=== PATIENT | female | born 1945 | race Caucasian/White ===

== ENCOUNTER 2016-10-27 10:43 | Inpatient (IN) | payer MEDICARE, MEDICAID ==
[~2016-10-27] VITALS: Ht 160 cm; Wt 90.6 kg
[~2016-10-27 10:43] MED LIST: ASPI-496 PO; CELE200C PO; CETI10TA24 PO; CHOL100015 PO; CYCL5TAB PO; DIAZ5TAB PO; DULO30CA2 PO; EPIN0.3P3 IM; ESOM40CA PO; FAMO-79 PO; HYDR-3144 PO; HYDR-3307 PO; LEVO100T PO; LIDO700A5 TD; LOSA25TA5 PO; LOVA20TA2 PO; LUTE20CA PO; METF500T4 PO; ONDA4TAB7 PO; PREG75CA PO; SUMA100T4 PO
[2016-10-27] MEDS ORDERED: SODIUM CHLORIDE FLUSH 10ML SYR IVF ONE (12:00)
[2016-10-27] MEDS ORDERED: SODIUM CHLORIDE 0.9% 1,000ML IVBOLUS ONE (12:00)
[2016-10-27 12:45] LABS: ASPARTATE AMINO TRANSFERASE 96 U/L (15-37); BLOOD UREA NITROGEN 68 mg/dL (7-18)
[2016-10-27 13:09] LABS: HEMOGLOBIN 14.2 g/dL (11.7-16.4)
[2016-10-27 14:33] LABS: PTH INTACT INTERPRETATION ** Comment **
[2016-10-27 14:59] LABS: PARATHYROID HORMONE INTACT 25.1 pg/mL (14-72)
[2016-10-27] MEDS ORDERED: ACETAMINOPHEN 325 MG TABLET PO PRN (15:00)
[2016-10-27] MEDS ORDERED: ONDANSETRON ODT 4 MG PO PRN (15:00)
[2016-10-27] MEDS ORDERED: BISACODYL 10 MG SUPP PR PRN (15:00)
[2016-10-27] MEDS ORDERED: POLYETHYLENE GLYCOL 17 GM PACKET PO PRN (15:00)
[2016-10-27] MEDS ORDERED: ONDANSETRON 2MG/ML, 2ML IVP PRN (15:00)
[2016-10-27] MEDS: SODIUM CHLORIDE 0.9% 1,000 ML IV SCH ×4 (15:00→23:40)
[2016-10-27] MEDS: LIDODERM 5% PATCH TD SCH (15:30)
[2016-10-27] MEDS ORDERED: DIAZEPAM 5 MG TABLET PO PRN (15:30)
[2016-10-27] MEDS: INSULIN REGULAR 100 UNITS/ML, 3ML VIAL SQ-INSULIN SCH ×2 (16:00→21:00)
[2016-10-27 16:16] VITALS: BP 106/66
[2016-10-27 16:17] VITALS: BP 106/66
[2016-10-27] MEDS: HEPARIN 5,000 UNITS/ML, 1ML SQ SCH (16:21)
[2016-10-27 17:48] LABS: IS PT STATUS REG ER OR PRE ER? NO
[2016-10-27 18:18] LABS: BLOOD UREA NITROGEN 66 mg/dL (7-18)
[2016-10-27 19:50] VITALS: BP 116/72
[2016-10-27 20:57] LABS: POTASSIUM,URINE RANDOM 10 mmol/L
[2016-10-27] MEDS ORDERED: TEMPLATE NON-FORMULARY MED. (Lovastatin** 20 MG) PO SCH (21:00)
[2016-10-27] MEDS ORDERED: SIMVASTATIN 10 MG TABLET PO SCH (21:00)
[2016-10-27] MEDS ORDERED: TEMPLATE NON-FORMULARY MED. (Esomeprazole Magnesium** (Nexium**) 40 MG) PO SCH (21:00)
[2016-10-27] MEDS: ASPIRIN 81 MG TABLET EC PO SCH (21:04)
[2016-10-27] MEDS ORDERED: PANTOPROZOLE 40MG TABLET PO SCH (21:16)
[2016-10-28] MEDS: SODIUM CHLORIDE 0.9% 1,000 ML IV SCH ×5 (01:00→21:00)
[2016-10-28] MEDS: HEPARIN 5,000 UNITS/ML, 1ML SQ SCH ×2 (03:00→16:33)
[2016-10-28 04:00] VITALS: BP 97/67
[2016-10-28] MEDS: LEVOTHYROXINE 100 MCG TABLET PO SCH (05:57)
[2016-10-28 06:26] LABS: HEMOGLOBIN 13.1 g/dL (11.7-16.4)
[2016-10-28 06:32] VITALS: BP 107/69
[2016-10-28 06:47] LABS: ASPARTATE AMINO TRANSFERASE 66 U/L (15-37); BLOOD UREA NITROGEN 63 mg/dL (7-18)
[2016-10-28 07:50] LABS: IS PT STATUS REG ER OR PRE ER? NO
[2016-10-28] MEDS: INSULIN REGULAR 100 UNITS/ML, 3ML VIAL SQ-INSULIN SCH ×4 (09:00→21:00)
[2016-10-28] MEDS: PANTOPROZOLE 40MG TABLET PO SCH ×2 (09:46→16:33)
[2016-10-28] MEDS: SENNA/DOCUSATE TABLET PO SCH ×2 (09:46→21:01)
[2016-10-28] MEDS: IRON SUCROSE COMPLEX 100MG/5ML IV SCH (11:52)
[2016-10-28 12:35] VITALS: BP 105/71
[2016-10-28] MEDS: LIDODERM 5% PATCH TD SCH (15:30)
[2016-10-28 18:40] VITALS: BP 118/71
[2016-10-28] MEDS: SIMVASTATIN 10 MG TABLET PO SCH (21:01)
[2016-10-28] MEDS: ASPIRIN 81 MG TABLET EC PO SCH (21:01)
[2016-10-29] MEDS: SODIUM CHLORIDE 0.9% 1,000 ML IV SCH ×2 (02:26→09:14)
[2016-10-29 04:05] VITALS: BP 102/63
[2016-10-29] MEDS: HEPARIN 5,000 UNITS/ML, 1ML SQ SCH ×2 (06:16→17:37)
[2016-10-29] MEDS: LEVOTHYROXINE 100 MCG TABLET PO SCH (06:17)
[2016-10-29 06:19] LABS: HEMOGLOBIN 12.2 g/dL (11.7-16.4)
[2016-10-29 06:21] LABS: ASPARTATE AMINO TRANSFERASE 48 U/L (15-37); BLOOD UREA NITROGEN 45 mg/dL (7-18)
[2016-10-29] MEDS: INSULIN REGULAR 100 UNITS/ML, 3ML VIAL SQ-INSULIN SCH ×4 (07:00→20:54)
[2016-10-29 07:50] VITALS: BP 110/71
[2016-10-29] MEDS: PANTOPROZOLE 40MG TABLET PO SCH ×2 (09:09→16:29)
[2016-10-29] MEDS: IRON SUCROSE COMPLEX 100MG/5ML IV SCH (11:46)
[2016-10-29] MEDS: SENNA/DOCUSATE TABLET PO SCH (11:46)
[2016-10-29] MEDS ORDERED: MAGNESIUM SULFATE PMX 2GM/50ML 50 ML IV ONE (13:30)
[2016-10-29] MEDS ORDERED: POTASSIUM CHLORIDE 20 MEQ TAB.ER.PRT PO ONE (13:30)
[2016-10-29] MEDS: LIDODERM 5% PATCH TD SCH (14:21)
[2016-10-29] MEDS ORDERED: SODIUM CHLORIDE 0.9% 1,000 ML IV SCH (14:30)
[2016-10-29 15:43] VITALS: BP 116/66
[2016-10-29 19:42] VITALS: BP 109/60
[2016-10-29] MEDS: ASPIRIN 81 MG TABLET EC PO SCH (20:54)
[2016-10-29] MEDS: SIMVASTATIN 10 MG TABLET PO SCH (20:54)
[2016-10-30 03:16] VITALS: BP 102/67
[2016-10-30] MEDS: HEPARIN 5,000 UNITS/ML, 1ML SQ SCH (05:15)
[2016-10-30] MEDS: LEVOTHYROXINE 100 MCG TABLET PO SCH (05:15)
[2016-10-30 05:50] LABS: ASPARTATE AMINO TRANSFERASE 41 U/L (15-37); BLOOD UREA NITROGEN 30 mg/dL (7-18)
[2016-10-30 05:51] LABS: HEMOGLOBIN 11.6 g/dL (11.7-16.4)
[2016-10-30] MEDS: INSULIN REGULAR 100 UNITS/ML, 3ML VIAL SQ-INSULIN SCH ×2 (07:00→11:33)
[2016-10-30 07:11] VITALS: BP 109/55
[2016-10-30] MEDS: PANTOPROZOLE 40MG TABLET PO SCH (08:46)
[2016-10-30] MEDS: IRON SUCROSE COMPLEX 100MG/5ML IV SCH (10:30)
[2016-10-30 12:38] VITALS: BP 118/70
[2016-10-30] MEDS: LIDODERM 5% PATCH TD SCH (14:58)
== END 2016-10-30 15:58 | disposition home or self-care (01) | DRG 683 ==
LOC: ED 12:30 → EDIP 13:46 → 4WST 15:57
PROVIDERS: ADMIT Family Medicine; ATTEND Family Medicine
PROC: 0T9B70Z Drainage of Bladder with Drainage Device, Via Natural or Artificial Opening (ICD-10-PCS; principal; 2016-10-27)
DX: N17.0 Acute kidney failure with tubular necrosis (principal); E46 Unspecified protein-calorie malnutrition; J44.9 Chronic obstructive pulmonary disease, unspecified; G43.909 Migraine, unspecified, not intractable, without status migrainosus; E86.0 Dehydration; K21.9 Gastro-esophageal reflux disease without esophagitis; H81.09 Meniere's disease, unspecified ear; K22.0 Achalasia of cardia; K59.00 Constipation, unspecified; R74.8 Abnormal levels of other serum enzymes; E11.21 Type 2 diabetes mellitus with diabetic nephropathy; R80.9 Proteinuria, unspecified; D64.9 Anemia, unspecified; E83.51 Hypocalcemia; M19.90 Unspecified osteoarthritis, unspecified site; G62.9 Polyneuropathy, unspecified; E03.9 Hypothyroidism, unspecified; Z96.652 Presence of left artificial knee joint; Z88.1 Allergy status to other antibiotic agents; Z91.030 Bee allergy status; Z91.041 Radiographic dye allergy status; Z90.49 Acquired absence of other specified parts of digestive tract; Z88.5 Allergy status to narcotic agent; Z88.8 Allergy status to other drugs, medicaments and biological substances; Z91.048 Other nonmedicinal substance allergy status; Z82.49 Family history of ischemic heart disease and other diseases of the circulatory system; Z82.5 Family history of asthma and other chronic lower respiratory diseases; Z80.3 Family history of malignant neoplasm of breast; Z83.3 Family history of diabetes mellitus; Z98.1 Arthrodesis status; Z68.35 Body mass index [BMI] 35.0-35.9, adult
CPT/HCPCS: 36415; 71010; 74176; 80048; 80053; 81001; 82306; 82310; 82436; 82550; 82570; 82728; 82962; 83540; 83550; 83605; 83690; 83735; 83970; 84100; 84133; 84156; 84300; 84443; 84484; 84550; 85025; 85610; 85730; 86850; 86900; 87205; 93005; 96360; 96361; J1644; J1756; J1815; J3475; J7030

== ENCOUNTER 2017-08-09 07:10 | Day surgery (SDC) | payer MEDICARE, MEDICAID ==
[~2017-08-09 07:10] MED LIST changes: -HYDR-3144 PO; +HYDR-3245 PO; -LUTE20CA PO; +LUTE20CA2 PO
[2017-08-09 08:00] VITALS: BP 136/82
[2017-08-09 08:21] LABS: INTERNATIONAL NORMALIZED RATIO 1.17 (0.93-1.1)
[2017-08-09] MEDS ORDERED: LIDOCAINE 1%, 10ML ONE (09:09)
[2017-08-09] MEDS ORDERED: NALOXONE 1 MG/ML, 2ML ONE (09:12)
[2017-08-09] MEDS ORDERED: FLUMAZENIL 0.1 MG/1 ML, 5ML ONE (09:12)
[2017-08-09] MEDS ORDERED: FENTANYL PF 100 MCG/2ML ONE (09:12)
[2017-08-09] MEDS ORDERED: MIDAZOLAM 1 MG/ML, 5ML ONE (09:12)
[2017-08-09] MEDS ORDERED: VISIPAQUE 320 MG/ML, 150ML BOTTLE ONE (13:00)
== END 2017-08-09 11:55 ==
LOC: OUT 07:10
PROVIDERS: ATTEND Surgery
DX: C22.9 Malignant neoplasm of liver, not specified as primary or secondary (principal)
CPT/HCPCS: 36011; 36415; 75889; 76937; 85610; 99156; 99157; C1751; C1769; C1894; J2250; J3010; J3490; Q9967; 75885; J2310

== ENCOUNTER → 2017-08-17 | Outpatient (CLI) | payer MEDICARE, MEDICAID | END | disposition home or self-care (01) | LOC: CFH 09:41 | PROVIDERS: ATTEND Surgery | DX: C22.9 Malignant neoplasm of liver, not specified as primary or secondary (principal) | CPT/HCPCS: 71250 ==

== ENCOUNTER → 2017-08-17 | Outpatient (CLI) | payer MEDICARE, MEDICAID | END | disposition home or self-care (01) | LOC: PETCFH 09:34 | PROVIDERS: ATTEND Surgery | DX: C22.9 Malignant neoplasm of liver, not specified as primary or secondary (principal) | CPT/HCPCS: 78306; A9503 ==

== ENCOUNTER → 2017-09-21 | Outpatient (CLI) | payer MEDICARE, MEDICAID | LOC: RAD 09:41 | PROVIDERS: ATTEND Nurse Practitioner | DX: M25.572 Pain in left ankle and joints of left foot (principal); R60.0 Localized edema ==

== ENCOUNTER 2017-09-27 01:49 | Emergency (ER) | payer MEDICARE, MEDICAID ==
[~2017-09-27] VITALS: Ht 160 cm; Wt 83.0 kg
[2017-09-27 02:50] LABS: BASOPHILS # (AUTO) 0.01 x10^3/uL (0-0.1); BASOPHILS % (AUTO) 0 % (0-1); EOSINOPHILS # (AUTO) 0.09 x10^3/uL (0-0.4); EOSINOPHILS % (AUTO) 2 % (1-7); LYMPHOCYTES # (AUTO) 1.24 x10^3/uL (1-3.4); LYMPHOCYTES % (AUTO) 27 % (22-44); MD NO; MEAN CORPUSCULAR HEMOGLOBIN 31.5 pg (27.0-34.8); MEAN CORPUSCULAR HGB CONC 33.4 g/dL (32.4-35.8); MEAN CORPUSCULAR VOLUME 94.3 fL (80-100); MEAN PLATELET VOLUME 7.9 fL (7.4-10.4); MONOCYTES % (AUTO) 9 % (2-9); NEUTROPHILS # (AUTO) 2.85 x10^3/uL (1.8-6.8); NEUTROPHILS % (AUTO) 62 % (42-75); PLATELET COUNT 117 x10^3/uL (130-400); RED BLOOD COUNT 4.39 x10^6/uL (3.82-5.3); RED CELL DISTRIBUTION WIDTH 13.8 % (9.6-15.2)
[2017-09-27 03:01] LABS: ALANINE AMINOTRANSFERASE 28 U/L (12-78); ALBUMIN 2.7 g/dL (3.4-5.0); ANION GAP 10 mmol/L (5-15); CALCIUM 8.1 mg/dL (8.5-10.1); CHLORIDE 96 mmol/L (98-107); CREATININE 0.86 mg/dL (0.55-1.02)
[2017-09-27 03:04] LABS: ALKALINE PHOSPHATASE 110 U/L (45-117); BILIRUBIN,TOTAL 0.8 mg/dL (0.2-1.0); TOTAL PROTEIN 6.4 g/dL (6.4-8.2)
[2017-09-27 03:18] LABS: INTERNATIONAL NORMALIZED RATIO 1.19 (0.93-1.1); PROTHROMBIN TIME 12.2 Seconds (9.6-11.5)
[2017-09-27 05:17] VITALS: BP 129/65
== END 2017-09-27 05:20 | disposition home or self-care (01) ==
LOC: ED 02:41
DX: L76.34 Postprocedural seroma of skin and subcutaneous tissue following other procedure (principal); K74.60 Unspecified cirrhosis of liver; R18.8 Other ascites; J44.9 Chronic obstructive pulmonary disease, unspecified; E11.9 Type 2 diabetes mellitus without complications; Z90.49 Acquired absence of other specified parts of digestive tract; Z90.10 Acquired absence of unspecified breast and nipple; N19 Unspecified kidney failure
CPT/HCPCS: 36415; 74176; 80053; 83690; 85025; 85610; 85730; 99285

== ENCOUNTER 2017-10-12 12:11 | Emergency (ER) | payer MEDICARE, MEDICAID ==
[~2017-10-12] VITALS: Ht 160 cm; Wt 79.1 kg
[2017-10-12] MEDS ORDERED: SODIUM CHLORIDE 0.9% 1,000ML IVBOLUS ONE (13:00)
[2017-10-12] MEDS ORDERED: FAMOTIDINE 20 MG/2 ML IVP ONE (13:00)
[2017-10-12] MEDS ORDERED: ONDANSETRON 2MG/ML, 2ML IVPush ONE (13:00)
[2017-10-12] MEDS ORDERED: SODIUM CHLORIDE FLUSH 10ML SYR IVF ONE (13:00)
[2017-10-12 13:22] LABS: INTERNATIONAL NORMALIZED RATIO 1.24 (0.93-1.1); PROTHROMBIN TIME 12.7 Seconds (9.6-11.5)
[2017-10-12 13:26] LABS: ALANINE AMINOTRANSFERASE 30 U/L (12-78); ALBUMIN 3.2 g/dL (3.4-5.0); ANION GAP 14 mmol/L (5-15); CALCIUM 8.4 mg/dL (8.5-10.1); CHLORIDE 95 mmol/L (98-107)
[2017-10-12 13:27] LABS: MEAN CORPUSCULAR HEMOGLOBIN 32.3 pg (27.0-34.8); RED BLOOD COUNT 4.76 x10^6/uL (3.82-5.3); RED CELL DISTRIBUTION WIDTH 14.3 % (9.6-15.2)
[2017-10-12 13:29] LABS: ALKALINE PHOSPHATASE 152 U/L (45-117); BILIRUBIN,TOTAL 0.9 mg/dL (0.2-1.0); CREATININE 1.07 mg/dL (0.55-1.02); TOTAL PROTEIN 7.7 g/dL (6.4-8.2)
[2017-10-12 13:48] LABS: BASOPHILS # (AUTO) 0.01 x10^3/uL (0-0.1); BASOPHILS % (AUTO) 0 % (0-1); EOSINOPHILS # (AUTO) 0.07 x10^3/uL (0-0.4); EOSINOPHILS % (AUTO) 2 % (1-7); LYMPHOCYTES % (AUTO) 16 % (22-44); MD SCAN; MEAN PLATELET VOLUME 8.8 fL (7.4-10.4); MONOCYTES # (AUTO) 0.47 x10^3/uL (0.2-0.8); MONOCYTES % (AUTO) 11 % (2-9); NEUTROPHILS # (AUTO) 3.03 x10^3/uL (1.8-6.8); NEUTROPHILS % (AUTO) 71 % (42-75); PLATELET COUNT 106 x10^3/uL (130-400)
[2017-10-12] MEDS ORDERED: ONDANSETRON 2MG/ML, 2ML ONE (16:49)
[2017-10-12] MEDS ORDERED: HYDROcodone/APAP 10/325 MG TABLET ONE (16:49)
[2017-10-12] MEDS ORDERED: HYDROcodone/APAP 10/325 MG TABLET PO ONE (17:00)
[2017-10-12] MEDS ORDERED: METF500T4 PO (18:22)
[2017-10-12] MEDS ORDERED: LANS15CA5 PO (18:22)
[2017-10-12] MEDS ORDERED: SULF-169 PO (18:22)
[2017-10-12] MEDS ORDERED: POTA99TA2 PO (18:22)
[2017-10-12] MEDS ORDERED: SPIR100T2 PO (18:22)
[2017-10-12] MEDS ORDERED: LOSA25TA5 PO (18:22)
[2017-10-12] MEDS ORDERED: FURO-92 PO (18:22)
[2017-10-12] MEDS ORDERED: LEVA15HF4 INH (18:24)
[2017-10-12 19:37] VITALS: BP 117/54
== END 2017-10-12 19:38 | disposition home or self-care (01) ==
LOC: ED 16:57
DX: S30.1XXA Contusion of abdominal wall, initial encounter (principal); R10.84 Generalized abdominal pain; J44.9 Chronic obstructive pulmonary disease, unspecified; E11.9 Type 2 diabetes mellitus without complications; Z90.49 Acquired absence of other specified parts of digestive tract; Z90.10 Acquired absence of unspecified breast and nipple; X58.XXXA Exposure to other specified factors, initial encounter; Y93.9 Activity, unspecified; Y92.89 Other specified places as the place of occurrence of the external cause; Y99.9 Unspecified external cause status
CPT/HCPCS: 36415; 74176; 80053; 83690; 85025; 85610; 96361; 96374; 99285; J2405; J7030

== ENCOUNTER → 2017-11-04 | Outpatient (CLI) | payer MEDICARE, MEDICAID ==
[~2017-11-04] MED LIST changes: +FURO-92 PO; +GADOBUTROL 10 MMOL/10 ML VIAL ONE; +LANS15CA5 PO; +LEVA15HF4 INH; +POTA99TA2 PO; +SPIR100T2 PO; +SULF-169 PO
== END | disposition home or self-care (01) ==
LOC: CFH 14:21
PROVIDERS: ATTEND Surgery
DX: K74.60 Unspecified cirrhosis of liver (principal); C22.9 Malignant neoplasm of liver, not specified as primary or secondary
CPT/HCPCS: 74183; A9585

== ENCOUNTER 2017-11-15 23:35 | Observation (INO) | payer MEDICARE, MEDICAID ==
[~2017-11-15] VITALS: Ht 160 cm; Wt 80.3 kg
[~2017-11-15 23:35] MED LIST changes: -GADOBUTROL 10 MMOL/10 ML VIAL ONE
[2017-11-15] MEDS ORDERED: ONDANSETRON ODT 4 MG ONE (23:45)
[2017-11-15 23:57] LABS: BASOPHILS # (AUTO) 0.02 x10^3/uL (0-0.1); BASOPHILS % (AUTO) 0 % (0-1); EOSINOPHILS # (AUTO) 0.11 x10^3/uL (0-0.4); EOSINOPHILS % (AUTO) 2 % (1-7); LYMPHOCYTES # (AUTO) 2.14 x10^3/uL (1-3.4); LYMPHOCYTES % (AUTO) 34 % (22-44); MD NO; MEAN CORPUSCULAR HEMOGLOBIN 32.2 pg (27.0-34.8); MEAN CORPUSCULAR HGB CONC 33.8 g/dL (32.4-35.8); MEAN CORPUSCULAR VOLUME 95.3 fL (80-100); MEAN PLATELET VOLUME 8.5 fL (7.4-10.4); MONOCYTES % (AUTO) 10 % (2-9); NEUTROPHILS % (AUTO) 54 % (42-75); PLATELET COUNT 114 x10^3/uL (130-400); RED BLOOD COUNT 4.11 x10^6/uL (3.82-5.3); RED CELL DISTRIBUTION WIDTH 14.1 % (9.6-15.2)
[2017-11-16] MEDS ORDERED: ONDANSETRON 2MG/ML, 2ML IVPush ONE
[2017-11-16] MEDS ORDERED: ONDANSETRON ODT 4 MG PO ONE
[2017-11-16] MEDS ORDERED: SODIUM CHLORIDE 0.9% 1,000ML IVBOLUS ONE
[2017-11-16 00:06] LABS: INTERNATIONAL NORMALIZED RATIO 1.17 (0.93-1.1); PROTHROMBIN TIME 12.1 Seconds (9.6-11.5)
[2017-11-16 00:10] LABS: ALBUMIN 3.1 g/dL (3.4-5.0); ANION GAP 12 mmol/L (5-15); CHLORIDE 98 mmol/L (98-107)
[2017-11-16 00:13] LABS: ACETAMINOPHEN < 2 mcg/mL (10-30); ALANINE AMINOTRANSFERASE 34 U/L (12-78); BILIRUBIN,TOTAL 0.4 mg/dL (0.2-1.0); CREATININE 1.07 mg/dL (0.55-1.02); SALICYLATE LEVEL < 1.7 mg/dL (2.8-20.0); T4 (THYROXINE) 11.3 mcg/dL (4.8-13.9); TOTAL PROTEIN 6.7 g/dL (6.4-8.2); TROPONIN I < 0.015 ng/mL (0.000-0.045)
[2017-11-16 00:18] LABS: ALKALINE PHOSPHATASE 134 U/L (45-117)
[2017-11-16 00:41] LABS: MICROSCOPIC INDICATED
[2017-11-16 00:51] LABS: CULTURE INDICATED? NO
[2017-11-16 01:06] LABS: AMPHETAMINE SCREEN, URINE Negative (Negative); BARBITURATE SCREEN, URINE Negative (Negative); BENZODIAZEPINE SCREEN, URINE Positive (Negative); CANNABINOID SCREEN, URINE Positive (Negative); COCAINE SCREEN, URINE Negative (Negative); METHADONE SCREEN, URINE Negative (Negative); OPIATE SCREEN, URINE Positive (Negative)
[2017-11-16 01:30] VITALS: BP 85/37
[2017-11-16] MEDS ORDERED: NS + 20MEQ KCL 1,000 ML IV SCH (01:49)
[2017-11-16] MEDS ORDERED: ONDANSETRON 2MG/ML, 2ML IVPush PRN (02:00)
[2017-11-16] MEDS ORDERED: ALBUTEROL/IPRATROPIUM 2.5MG/0.5MG, 3 ML NPPB PRN (02:00)
[2017-11-16 02:33] VITALS: BP 89/42
[2017-11-16 04:00] VITALS: BP 94/44
[2017-11-16 04:20] LABS: ANION GAP 9 mmol/L (5-15); CALCIUM 8.1 mg/dL (8.5-10.1); CHLORIDE 99 mmol/L (98-107); CREATININE 1.05 mg/dL (0.55-1.02)
[2017-11-16 07:14] VITALS: BP 96/63
[2017-11-16 12:11] VITALS: BP 120/68
[2017-11-16] MEDS ORDERED: ACETAMINOPHEN 325 MG TABLET ONE (13:48)
[2017-11-16] MEDS ORDERED: ACETAMINOPHEN 325 MG TABLET PO ONE (14:00)
== END 2017-11-16 14:35 | disposition home or self-care (01) ==
LOC: ED 11-16 00:46 → EDIP 11-16 00:51 → INTOOBSV 11-16 00:51 → ED 11-16 01:05 → 4WST 11-16 01:28 → DCLOUNGE 11-16 14:22
PROVIDERS: ADMIT Family Medicine; ATTEND Family Medicine
DX: F12.929 Cannabis use, unspecified with intoxication, unspecified (principal); E87.6 Hypokalemia; E03.9 Hypothyroidism, unspecified; E11.9 Type 2 diabetes mellitus without complications; E86.0 Dehydration; J44.9 Chronic obstructive pulmonary disease, unspecified; K21.9 Gastro-esophageal reflux disease without esophagitis; L03.90 Cellulitis, unspecified; G25.81 Restless legs syndrome; R18.8 Other ascites; Z79.84 Long term (current) use of oral hypoglycemic drugs; Z85.3 Personal history of malignant neoplasm of breast; Z85.05 Personal history of malignant neoplasm of liver
CPT/HCPCS: 36415; 71045; 76700; 80048; 80053; 80307; 80329; 81001; 82140; 83605; 83880; 84436; 84443; 84484; 85025; 85610; 85730; 87040; 93005; 96365; 96366; 96375; 99285; G0378; J2405; J3480; J7030; Q0162; G0480

== ENCOUNTER → 2018-03-27 | Outpatient (CLI) | payer MEDICARE, MEDICAID ==
[~2018-03-27] MED LIST changes: +FENTANYL PF 100 MCG/2ML ONE; +FLUMAZENIL 0.1 MG/1 ML, 5ML ONE; +GADOBUTROL 10 MMOL/10 ML VIAL ONE; -METF500T4 PO; +METF500T5 PO; +MIDAZOLAM 1 MG/ML, 5ML ONE; +NALOXONE 1 MG/ML, 2ML ONE; -SPIR100T2 PO; +SPIR100T4 PO
== END | disposition home or self-care (01) ==
LOC: RAD 06:52
PROVIDERS: ATTEND Surgery
DX: K74.60 Unspecified cirrhosis of liver (principal); R18.8 Other ascites; R16.1 Splenomegaly, not elsewhere classified; C22.9 Malignant neoplasm of liver, not specified as primary or secondary
CPT/HCPCS: 74183; 99156; 99157; A9585; J2250; J3010; J2310

== ENCOUNTER 2018-05-12 10:39 | Emergency (ER) | payer MEDICARE, MEDICAID ==
[~2018-05-12] VITALS: Ht 162.6 cm; Wt 84.5 kg
[~2018-05-12 10:39] MED LIST changes: -FENTANYL PF 100 MCG/2ML ONE; -FLUMAZENIL 0.1 MG/1 ML, 5ML ONE; -GADOBUTROL 10 MMOL/10 ML VIAL ONE; -LOSA25TA5 PO; +LOSA25TA6 PO; +METF500T17 PO; -METF500T5 PO; -MIDAZOLAM 1 MG/ML, 5ML ONE; -NALOXONE 1 MG/ML, 2ML ONE
[2018-05-12] MEDS ORDERED: LIDOCAINE 1%-EPI 1:100K, 20ML INFIL ONE (11:00)
[2018-05-12] MEDS ORDERED: LIDOCAINE-MPF 2%, 2ML ONE (11:41)
[2018-05-12] MEDS ORDERED: BACITRACIN ZINC OINT 500U/GM, 0.9 GM ONE (12:22)
[2018-05-12] MEDS ORDERED: DIPH,PERTUSS(ACELL),TET VAC/PF 0.5 ML IM-VACC ONE ×2 (12:22→12:30)
[2018-05-12 12:45] VITALS: BP 131/87
== END 2018-05-12 13:02 | disposition home or self-care (01) ==
LOC: ED 11:45
DX: S60.222A Contusion of left hand, initial encounter (principal); S01.81XA Laceration without foreign body of other part of head, initial encounter; S60.221A Contusion of right hand, initial encounter; S09.8XXA Other specified injuries of head, initial encounter; R51 Headache; E03.9 Hypothyroidism, unspecified; E11.9 Type 2 diabetes mellitus without complications; J44.9 Chronic obstructive pulmonary disease, unspecified; Y92.009 Unspecified place in unspecified non-institutional (private) residence as the place of occurrence of the external cause; Y99.8 Other external cause status; Y93.K1 Activity, walking an animal; W01.0XXA Fall on same level from slipping, tripping and stumbling without subsequent striking against object, initial encounter
CPT/HCPCS: 12052; 70450; 90471; 90715

== ENCOUNTER 2018-05-17 06:40 | Emergency (ER) | payer MEDICARE, MEDICAID ==
[~2018-05-17] VITALS: Ht 160 cm; Wt 84.5 kg
[2018-05-17 06:44] VITALS: BP 143/86
== END 2018-05-17 07:25 | disposition home or self-care (01) ==
LOC: ED 07:15
DX: S01.81XD Laceration without foreign body of other part of head, subsequent encounter (principal); E03.9 Hypothyroidism, unspecified; J44.9 Chronic obstructive pulmonary disease, unspecified; E11.9 Type 2 diabetes mellitus without complications
CPT/HCPCS: 99281

== ENCOUNTER → 2018-06-28 | Outpatient (CLI) | payer MEDICARE, MEDICAID | END | disposition home or self-care (01) | LOC: CFH 08:35 | PROVIDERS: ATTEND Physician Assistant Medical | DX: R16.1 Splenomegaly, not elsewhere classified (principal); K76.6 Portal hypertension; R18.8 Other ascites; Z90.49 Acquired absence of other specified parts of digestive tract | CPT/HCPCS: 74150 ==

== ENCOUNTER 2018-11-21 07:23 | Outpatient (CLI) | payer MEDICARE, MEDICAID ==
[~2018-11-21 07:23] MED LIST changes: +LOSA25TA25 PO; -LOSA25TA6 PO
[2018-11-21] MEDS ORDERED: FLUMAZENIL 0.1 MG/1 ML, 5ML ONE (08:14)
[2018-11-21] MEDS ORDERED: MIDAZOLAM 1 MG/ML, 5ML ONE (08:14)
[2018-11-21] MEDS ORDERED: FENTANYL PF 100 MCG/2ML ONE (08:14)
[2018-11-21] MEDS ORDERED: NALOXONE 1 MG/ML, 2ML ONE (08:14)
[2018-11-21] MEDS ORDERED: GADOBUTROL 10 MMOL/10 ML VIAL ONE (15:14)
== END 2018-11-21 23:59 | disposition home or self-care (01) ==
LOC: RAD 07:23
PROVIDERS: ATTEND Internal Medicine Gastroenterology
DX: M79.81 Nontraumatic hematoma of soft tissue (principal); K74.60 Unspecified cirrhosis of liver; R18.8 Other ascites; Z88.6 Allergy status to analgesic agent; Z88.5 Allergy status to narcotic agent; Z88.8 Allergy status to other drugs, medicaments and biological substances
CPT/HCPCS: 72197; 74183; 99156; 99157; A9585; J2250; J3010; J2310

== ENCOUNTER → 2018-12-20 | Outpatient (CLI) | payer MEDICARE, MEDICAID ==
[~2018-12-20] MED LIST changes: +ALBUMIN HUMAN 25%, 25GM/100ML ONE; +LIDOCAINE-MPF 1%, 5ML ONE
== END | disposition home or self-care (01) ==
LOC: RAD 11:47
PROVIDERS: ATTEND Internal Medicine Gastroenterology
DX: K74.60 Unspecified cirrhosis of liver (principal); C22.0 Liver cell carcinoma; R18.8 Other ascites
CPT/HCPCS: 49083; 74018; P9047

== ENCOUNTER 2019-01-24 13:29 | Outpatient (CLI) | payer MEDICARE, MEDICAID ==
[~2019-01-24 13:29] MED LIST changes: -ALBUMIN HUMAN 25%, 25GM/100ML ONE; -LIDOCAINE-MPF 1%, 5ML ONE
[2019-01-24] MEDS ORDERED: LIDOCAINE-MPF 1%, 5ML ONE (13:54)
== END 2019-01-24 23:59 | disposition home or self-care (01) ==
LOC: RAD 13:29
PROVIDERS: ATTEND Family Medicine
DX: R18.8 Other ascites (principal); K74.60 Unspecified cirrhosis of liver; C22.0 Liver cell carcinoma
CPT/HCPCS: 49083

== ENCOUNTER → 2019-02-14 | Outpatient (CLI) | payer MEDICARE, MEDICAID ==
[~2019-02-14] MED LIST changes: +LIDOCAINE-MPF 1%, 5ML ONE
== END | disposition home or self-care (01) ==
LOC: RAD 12:12
PROVIDERS: ATTEND Specialist
DX: R18.8 Other ascites (principal); C22.7 Other specified carcinomas of liver; E11.9 Type 2 diabetes mellitus without complications; E03.9 Hypothyroidism, unspecified; E78.5 Hyperlipidemia, unspecified; I10 Essential (primary) hypertension; K74.60 Unspecified cirrhosis of liver; Z79.890 Hormone replacement therapy; Z79.899 Other long term (current) drug therapy; Z85.3 Personal history of malignant neoplasm of breast; Z98.51 Tubal ligation status; Z96.653 Presence of artificial knee joint, bilateral; Z90.13 Acquired absence of bilateral breasts and nipples; Z90.49 Acquired absence of other specified parts of digestive tract; Z98.890 Other specified postprocedural states; Z80.3 Family history of malignant neoplasm of breast
CPT/HCPCS: 49083

== ENCOUNTER 2019-03-07 09:03 | Outpatient (CLI) | payer MEDICARE, MEDICAID ==
[~2019-03-07 09:03] MED LIST changes: -LIDOCAINE-MPF 1%, 5ML ONE
[2019-03-07] MEDS ORDERED: LIDOCAINE-MPF 1%, 5ML ONE (09:17)
== END 2019-03-07 23:59 | disposition home or self-care (01) ==
LOC: RAD 09:03
PROVIDERS: ATTEND Internal Medicine Geriatric Medicine
DX: R18.8 Other ascites (principal)
CPT/HCPCS: 49083